=== PATIENT | male | born 1950 | race Two or more races ===

== ENCOUNTER 2017-03-25 15:04 | Inpatient (IN) | payer BC ==
[~2017-03-25] VITALS: Ht 170.2 cm; Wt 99.1 kg
[2017-03-25] VITALS (7 sets, daily range): BP systolic 146–180; BP diastolic 73–84
[~2017-03-25 15:04] MED LIST: AMLO1CAP15 PO; ATOR20TA58 PO; CYCL10TA2 PO; DICL75TA PO; HYDR-2758 PO; IBUP-1060 PO; PANT40TA5 PO; TAMS0.4C2 PO; TIZA4CAP PO
[2017-03-25] MEDS ORDERED: ONDANSETRON PF 4 MG/2 ML VIAL. IV ONE (16:00)
[2017-03-25] MEDS ORDERED: IV NORMAL SALINE 1000ML BAG 1,000 ML IV ONE ×2 (16:00→17:00)
[2017-03-25] MEDS ORDERED: KETOROLAC 30 MG/ML INJ. IV ONE (16:00)
--- NOTE | 2017-03-25 16:13 | PHYS DOC ---
Past Medical History Past Medical History: GERD, Hypertension Past Surgical History: Knee Replacement, Other Alcohol Use: None Drug Use: None Adult General Chief Complaint Chief Complaint: ABDOMINAL PAIN HPI HPI 67-year-old male with a history of hypertension and gastritis compliant with his proton pump inhibitor now presents to the emergency department complaining of epigastric pain with nausea and vomiting for 2 days. She has only had 2 or 3 episodes of vomiting over the last 2 days and is not actively vomiting today. He has not had any pain or shortness of breath. Denies fevers chills sweats or shaking chills. He does have mild epigastric discomfort which is not worse with movement. Denies diarrhea. No black or bloody stool. She has not been eating or drinking much and reports some decreased urine output. Denies history of chronic abdominal problems. Review of Systems Review of Systems Constitutional: Denies fever or chills [] Eyes: Denies change in visual acuity, redness, or eye pain [] HENT: Denies nasal congestion or sore throat [] Respiratory: Denies cough or shortness of breath [] Cardiovascular: No additional information not addressed in HPI [] GI: Denies abdominal pain, nausea, vomiting, bloody stools or diarrhea [] : Denies dysuria or hematuria [] Musculoskeletal: Denies back pain or joint pain [] Integument: Denies rash or skin lesions [] Neurologic: Denies headache, focal weakness or sensory changes [] Endocrine: Denies polyuria or polydipsia [] All other systems were reviewed and found to be within normal limits, except as documented in this note. Current Medications Current Medications Current Medications Medications (Trade) Dose Ordered Sig/Beau Start Time Stop Time Status Last Admin Dose Admin Calcium Gluconate (Calcium Gluconate) 1,000 mg 1X ONCE 03/25/17 17:00 03/25/17 17:01 DC 03/25/17 17:06 1,000 MG Dextrose (Dextrose 50%-Water Syringe) 25 gm 1X ONCE 03/25/17 17:00 03/25/17 17:01 DC 03/25/17 17:04 25 GM Info (Do NOT chart on this entry -- for MONITORING) 1 each PRN DAILY PRN 03/25/17 16:15 03/27/17 16:14 Insulin Human Regular (NovoLIN R VIAL) 10 unit 1X ONCE 03/25/17 17:00 03/25/17 17:01 DC 03/25/17 17:06 10 UNIT Iohexol (Omnipaque 300 Mg/ml) 75 ml 1X ONCE 03/25/17 16:15 03/25/17 16:16 DC Ketorolac Tromethamine (Toradol) 30 mg 1X ONCE 03/25/17 16:00 03/25/17 16:07 DC 03/25/17 16:19 30 MG Ondansetron HCl (Zofran) 4 mg 1X ONCE 03/25/17 16:00 03/25/17 16:07 DC 03/25/17 16:19 4 MG Sodium Bicarbonate 50 meq 1X ONCE 03/25/17 17:00 03/25/17 17:01 DC 03/25/17 17:20 50 MEQ Sodium Chloride 1,000 ml @ 150 mls/hr [id number] 03/25/17 17:06 03/26/17 00:08 DC Allergies Allergies Allergies Coded Allergies Type Severity Reaction Last Updated Verified No Known Drug Allergies 12/21/15 No Physical Exam Physical Exam Well-appearing obese 67-year-old male in no acute distress. He is alert communicative cooperative and appropriate. Clear lungs regular rate and rhythm no tachycardia obese abdomen with pannus at baseline of distention per patient. Minimal epigastric tenderness no guarding rebound no mass or megaly normal bowel sounds normal color. Constitutional: Well developed, well nourished, no acute distress, non-toxic appearance. [] HENT: Normocephalic, atraumatic, bilateral external ears normal, oropharynx alley dry, no oral exudates, nose normal. [] Eyes: PERRLA, EOMI, conjunctiva normal, no discharge. [] Neck: Normal range of motion, no tenderness, supple, no stridor. [] Cardiovascular:Heart rate regular rhythm, no murmur [] Lungs & Thorax: Bilateral breath sounds clear to auscultation [] Abdomen: Bowel sounds normal, soft, epigastric tenderness. As above, no masses, no pulsatile masses. [] Skin: Warm, dry, no erythema, no rash. [] Back: No tenderness, no CVA tenderness. [] Extremities: No tenderness, no cyanosis, no clubbing, ROM intact, no edema. [] Neurologic: Alert and oriented X 3, normal motor function, normal sensory function, no focal deficits noted. [] Psychologic: Affect normal, judgement normal, mood normal. [] Current Patient Data Vital Signs Vital Signs Date Time Temp Pulse Resp B/P (MAP) Pulse Ox O2 Delivery O2 Flow Rate FiO2 03/25/17 17:14 74 18 172/90 (117) 93 03/25/17 15:22 98.2 Room Air 98.2 Lab Values Laboratory Tests Test 03/25/17 15:28 White Blood Count 10.5 x10^3/uL (4.0-11.0) Red Blood Count 3.68 x10^6/uL (4.30-5.70) L Hemoglobin 11.3 g/dL (13.0-17.5) L Hematocrit 33.7 % (39.0-53.0) L Mean Corpuscular Volume 92 fL (79-100) Mean Corpuscular Hemoglobin 31 pg (25-35) Mean Corpuscular Hemoglobin Concent 34 g/dL (31-37) Red Cell Distribution Width 14.7 % (11.5-14.5) H Platelet Count 265 x10^3/uL (140-400) Neutrophils (%) (Auto) 77 % (31-73) H Lymphocytes (%) (Auto) 16 % (24-48) L Monocytes (%) (Auto) 5 % (0-9) Eosinophils (%) (Auto) 2 % (0-3) Basophils (%) (Auto) 1 % (0-3) Neutrophils # (Auto) 8.1 x10^3uL (1.8-7.7) H Lymphocytes # (Auto) 1.7 x10^3/uL (1.0-4.8) Monocytes # (Auto) 0.6 x10^3/uL (0.0-1.1) Eosinophils # (Auto) 0.2 x10^3/uL (0.0-0.7) Basophils # (Auto) 0.1 x10^3/uL (0.0-0.2) Sodium Level 133 mmol/L (136-145) L Potassium Level 6.6 mmol/L (3.5-5.1) *H Chloride Level 97 mmol/L (98-107) L Carbon Dioxide Level 19 mmol/L (21-32) L Anion Gap 17 (6-14) H Blood Urea Nitrogen 93 mg/dL (8-26) H Creatinine 18.4 mg/dL (0.7-1.3) H Estimated GFR (Cockcroft-Gault) 2.6 BUN/Creatinine Ratio 5 (6-20) L Glucose Level 106 mg/dL (70-99) H Calcium Level 8.6 mg/dL (8.5-10.1) Total Bilirubin 0.7 mg/dL (0.2-1.0) Aspartate Amino Transferase (AST) 20 U/L (15-37) Alanine Aminotransferase (ALT) 21 U/L (16-63) Alkaline Phosphatase 93 U/L (46-116) Total Protein 7.2 g/dL (6.4-8.2) Albumin 3.4 g/dL (3.4-5.0) Albumin/Globulin Ratio 0.9 (1.0-1.7) L Lipase 85 U/L (73-393) Laboratory Tests 03/25/17 15:28 Laboratory Tests 03/25/17 15:28 EKG EKG EKG with normal sinus rhythm at 83 left axis deviation nonspecific ST and T- wave findings. No STEMI interpreted by me[] Radiology/Procedures Radiology/Procedures CT abdomen and pelvis pending[] Course & Med Decision Making Course & Med Decision Making Pertinent Labs and Imaging studies reviewed. (See chart for details) Patient with minimal epigastric pain and tenderness and mild malaise. Labs returned with acute renal failure BUN/creatinine 93 and 18.4. Patient with a history of prior renal insufficiency however highest creatinine on record in our system is December 2009 at 3.2 which resulted 0.92 days later. Patient's potassium 6.6 consistent with acute renal failure and CO2 19 consistent with metabolic acidosis as a result. Treatment initiated for hyperkalemia. Case discussed with patient's primary care doctor, Dr. Madrid is aware of history and findings and agrees with inpatient admission to his service and request consultation to Dr. Coles warehouse inventory clerk. Case discussed with Dr. Coles and he is aware the history and findings including CT result of bladder distention without with obstruction as possible etiology for this acute renal failure. Dr. Coles will address stat consultation and further treatment including dialysis as necessary. Critical care 36 minutes [] Dragon Disclaimer Dragon Disclaimer This electronic medical record was generated, in whole or in part, using a voice recognition dictation system. Departure Departure Impression: Primary Impression: Acute renal failure Additional Impressions: Dehydration Hyperkalemia, diminished renal excretion Metabolic acidosis Abdominal pain Disposition: 09 ADMITTED INPATIENT Admitting Physician: Amita Madrid Condition: CRITICAL Referrals: NO PCP (PCP) Problem Qualifiers MARY MIRZA MD Mar 25, 2017 16:13
--- NOTE | 2017-03-25 16:13 | EKG ---
[facility] [address] [place] [address] Test Date: 2017-03-25 Test Time: 15:18:51 Pat Name: KELLI FAGAN Department: Room: Gender: M Manager Flight: : 1950 Requested By: MARY MIRZA Order Number: [id number] Reading MD: Adalberto Weems MD Measurements Intervals [place] Rate: 83 P: 34 DC: 198 QRS: -26 QRSD: 96 T: 26 QT: 336 QTc: 400 Interpretive Statements SINUS RHYTHM LEFTWARD AXIS Electronically Signed On 03-25-2017 16:39:09 DROP BOARD WORKER by Adalberto Weems MD
[2017-03-25] MEDS ORDERED: CONTRAST GIVEN MC PRN (16:15)
[2017-03-25] MEDS ORDERED: IOHEXOL 300 MG/ML 100ML VIAL. IV ONE (16:15)
[2017-03-25 16:16] LABS: BASO # 0.1 x10^3/uL (0.0-0.2); BASO % 1 % (0-3); EOS % 2 % (0-3); HEMATOCRIT 33.7 % (39.0-53.0); HEMOGLOBIN 11.3 g/dL (13.0-17.5); LYMPH # 1.7 x10^3/uL (1.0-4.8); LYMPH % 16 % (24-48); MEAN CORPUSCULAR HEMOGLOBIN 31 pg (25-35); MEAN CORPUSCULAR HGB CONC 34 g/dL (31-37); MEAN CORPUSCULAR VOLUME 92 fL (79-100); MONO % 5 % (0-9); NEUT % 77 % (31-73); PLATELET COUNT 265 x10^3/uL (140-400); RED BLOOD COUNT 3.68 x10^6/uL (4.30-5.70); RED CELL DISTRIBUTION WIDTH 14.7 % (11.5-14.5); WHITE BLOOD COUNT 10.5 x10^3/uL (4.0-11.0)
[2017-03-25 16:38] LABS: ALBUMIN 3.4 g/dL (3.4-5.0); ALBUMIN/GLOBULIN RATIO 0.9 (1.0-1.7); CALCIUM 8.6 mg/dL (8.5-10.1); CREATININE 18.4 mg/dL (0.7-1.3); GFR 2.6; TOTAL BILIRUBIN 0.7 mg/dL (0.2-1.0); TOTAL PROTEIN 7.2 g/dL (6.4-8.2)
[2017-03-25 16:42] LABS: POTASSIUM 6.6 mmol/L (3.5-5.1)
[2017-03-25] MEDS ORDERED: CALCIUM GLUCONATE 100 MG/ML VIAL for DOSE IN MG. IVP ONE (17:00)
[2017-03-25] MEDS ORDERED: INSULIN REGULAR 100 UNIT/ML 10ML VIAL. IV ONE (17:00)
[2017-03-25] MEDS ORDERED: DEXTROSE 50% 25 GM / 50ML DISP.SYRIN. IV ONE (17:00)
[2017-03-25] MEDS ORDERED: SODIUM BICARB ADULT 8.4% 50 MEQ/50 ML DISP.SYRIN. IV ONE (17:00)
[2017-03-25] MEDS ORDERED: CALCIUM GLUCONATE 1,000 MG/10 ML VIAL. IV ONE (17:00)
[2017-03-25] MEDS ORDERED: IV NORMAL SALINE 1000ML BAG 1,000 ML IV SCH (17:06)
--- NOTE | 2017-03-25 17:25 | RAD ---
CT Abdomen and Pelvis without contrast History: Abdominal pain radiating to the chest for 4 days Technique: Noncontrast CT imaging was performed of the abdomen and pelvis. There is oral contrast present. Multiplanar images are reviewed. Exposure: One or more of the following individualized dose reduction techniques were utilized for this examination: 1. Automated exposure control 2. Adjustment of the mA and/or kV according to patient size 3. Use of iterative reconstruction technique. Comparison: None Findings: Accurate evaluation of abdominal visceral organs is limited without intravenous contrast. There is no obvious abnormality of the spleen, liver, or pancreas. There is no adrenal nodularity. Gallbladder is present without obvious intraluminal abnormality by CT. Bowel is not considered significantly dilated. No free air is identified. Normal caliber appendix is visualized. Bowel is not considered significantly dilated. There is some strandy change of the paracolic gutters bilaterally. There is also perinephric stranding change bilaterally. Urinary bladder is distended. There is mild right pelvocaliectasis/hydronephrosis. No renal or ureteral calculus is identified. There is hypodense lesion of the inferior right kidney otherwise difficult to characterize, grossly estimated at 1.5 cm density measurements of 9 Hounsfield units. Prostate gland is somewhat prominent. There is multilevel lumbar facet degenerative change. There is degenerative change of the bilateral hips. There is vacuum disc disease greatest at L5-S1, L2-3, L1-2. Impression: 1. There is distention of the urinary bladder, mild right renal pelvocaliectasis. There is also nonspecific stranding change of bilateral perinephric fat. 2. There is probable right renal cyst, poorly characterized on this exam. Electronically signed by: Hernandez Alva MD (03/25/2017 5:22 PM) [id number]
[2017-03-25] MEDS: SODIUM BICARBONATE VIAL 50 MEQ in IV 1/2 NORMAL SALINE 1,000 ML IV SCH ×2 (18:15→19:12)
[2017-03-25] MEDS ORDERED: INFLUENZA VAX SCREEN BY RX. MC ONE (19:30)
[2017-03-25] MEDS ORDERED: PNEUMOCOCCAL VAX SCREEN BY RX. MC ONE (19:30)
[2017-03-25] MEDS ORDERED: PNEUMOC CONJ VACC 23-VALENT 0.5 ML VIAL. VAX IM ONE (21:00)
[2017-03-25] MEDS ORDERED: FLU VACC QS2017-18 (36MOS+)/PF 0.5 ML SYRINGE. VAX IM ONE (21:00)
[2017-03-25] MEDS: ACETAMINOPHEN 325 MG TABLET. PO PRN (21:59)
[2017-03-25] MEDS ORDERED: ONDANSETRON PF 4 MG/2 ML VIAL. IV PRN (22:00)
[2017-03-25] MEDS: HYDROcodone/APAP 5/325MG 1 TAB TABLET PO PRN (22:00)
[2017-03-26] VITALS (18 sets, daily range): BP systolic 132–169; BP diastolic 72–91
[2017-03-26] MEDS: diphenhydrAMINE HCL 25 MG CAPSULE PO PRN (02:52)
[2017-03-26] MEDS: IV NORMAL SALINE 1000ML BAG 1,000 ML IV SCH ×4 (02:52→21:45)
[2017-03-26 05:19] LABS: BILIRUBIN,URINE NEGATIVE (NEG); GLUCOSE,URINE NEGATIVE (NEG); NITRITE,URINE NEGATIVE (NEG); PH,URINE 6.5; PROTEIN,URINE NEGATIVE (NEG-TRACE); UROBILINOGEN,URINE 0.2 mg/dL (0.2 mg/dL)
[2017-03-26 05:26] LABS: RBC,URINE TNTC /HPF (0-2)
[2017-03-26 05:28] LABS: BACTERIA,URINE 0 /HPF (0-FEW)
[2017-03-26 06:28] LABS: BASO % 1 % (0-3); EOS % 4 % (0-3); HEMOGLOBIN 11.1 g/dL (13.0-17.5); LYMPH # 2.1 x10^3/uL (1.0-4.8); LYMPH % 24 % (24-48); MEAN CORPUSCULAR HEMOGLOBIN 30 pg (25-35); MEAN CORPUSCULAR HGB CONC 34 g/dL (31-37); MEAN CORPUSCULAR VOLUME 90 fL (79-100); MONO % 8 % (0-9); NEUT % 65 % (31-73); PLATELET COUNT 259 x10^3/uL (140-400); RED BLOOD COUNT 3.66 x10^6/uL (4.30-5.70); RED CELL DISTRIBUTION WIDTH 14.8 % (11.5-14.5); WHITE BLOOD COUNT 8.8 x10^3/uL (4.0-11.0)
[2017-03-26 06:45] LABS: CALCIUM 8.9 mg/dL (8.5-10.1); CREATININE 7.3 mg/dL (0.7-1.3); GFR 7.5; POTASSIUM 5.3 mmol/L (3.5-5.1)
--- NOTE | 2017-03-26 07:57 | PDOC1 ---
FELISA KING HOT SHOT 03/26/17 0757: HISTORY AND PHYSICAL Chief Complaint Chief Complaint This 67 year old [place] Citizen male has been admitted with a chief complaint of abdominal pain, nausea and vomiting. He was seen by Dr. Randhawa yesterday with c/ o 3 day onset abdominal pain, nausea, and episodes of vomiting. He had epigastric tenderness. His ROS was negative for fever, chills, or diarrhea. He was instructed to proceed to the ED for evaluation. Labs revealed: Na 133, K 6.6 , BUN 93 and Cr 18.4. Hyperkalemia treatment was given. A CT of the abdomen/ pelvis was performed. Distention of the urinary bladder, mild right renal pelvocaliectasis and nonspecific stranding change of bilateral perinephric fat was identified. Lipase 85. A probable right renal cyst was also noted although poorly characterized on this exam. A UA was positive for hematuria. He was then admitted to the ICU and consultation placed with nephrology. Problem List Problems Medical Problems: (1) Abdominal pain Status: Acute (2) Acute renal failure Status: Acute (3) Dehydration Status: Acute (4) Hyperkalemia, diminished renal excretion Status: Acute (5) Metabolic acidosis Status: Acute Past Medical History Cardiovascular: HTN, Hyperlipidemia Musculoskeletal: low back pain (chronic DDD ), Osteoarthritis (bilateral hips ), Other Renal/: Benign prostatic enlarg. Past Surgical History PSH No surgeries Past Surgical History: Other Past Family History Family History: Diabetes, Hypertension Past Social History PSH Negative smoking, ETOH or illicit drug use. Review of Symptoms Review of Symptoms A 14 point ROS was completed with the following noted as positive: per HPI with exception abdominal pain which has resolved. Other systems reviewed and negative. Medications Medications reviewed and reconciled. Allergy Allergies Coded Allergies Type Severity Reaction Last Updated Verified No Known Drug Allergies 12/21/15 No Physical Exam Physical Exam General appearance - alert,well appearing, and in no distress Mental Status - alert, oriented to person, place, and time, affect appropriate to mood Head - normal Chest - clear to auscultation, no wheezes, rales or rhonchi Heart - S1 and S2 normal Abdomen - soft, neg tender epigastric, nondistended, BS+ Neurological - no acute focal neurological deficits noted. Musculoskeletal - no muscular tenderness noted Extremities - no pedal edema Skin - warm and dry VTE Prophylaxis Ordered VTE Prophylaxis Devices: Yes VTE Pharmacological Prophylaxi: No Assessment Labs Laboratory Tests Test 03/25/17 15:28 03/26/17 05:00 03/26/17 05:55 White Blood Count 10.5 x10^3/uL (4.0-11.0) 8.8 x10^3/uL (4.0-11.0) Red Blood Count 3.68 x10^6/uL (4.30-5.70) 3.66 x10^6/uL (4.30-5.70) Hemoglobin 11.3 g/dL (13.0-17.5) 11.1 g/dL (13.0-17.5) Hematocrit 33.7 % (39.0-53.0) 33.0 % (39.0-53.0) Mean Corpuscular Volume 92 fL (79-100) 90 fL (79-100) Mean Corpuscular Hemoglobin 31 pg (25-35) 30 pg (25-35) Mean Corpuscular Hemoglobin Concent 34 g/dL (31-37) 34 g/dL (31-37) Red Cell Distribution Width 14.7 % (11.5-14.5) 14.8 % (11.5-14.5) Platelet Count 265 x10^3/uL (140-400) 259 x10^3/uL (140-400) Neutrophils (%) (Auto) 77 % (31-73) 65 % (31-73) Lymphocytes (%) (Auto) 16 % (24-48) 24 % (24-48) Monocytes (%) (Auto) 5 % (0-9) 8 % (0-9) Eosinophils (%) (Auto) 2 % (0-3) 4 % (0-3) Basophils (%) (Auto) 1 % (0-3) 1 % (0-3) Neutrophils # (Auto) 8.1 x10^3uL (1.8-7.7) 5.7 x10^3uL (1.8-7.7) Lymphocytes # (Auto) 1.7 x10^3/uL (1.0-4.8) 2.1 x10^3/uL (1.0-4.8) Monocytes # (Auto) 0.6 x10^3/uL (0.0-1.1) 0.7 x10^3/uL (0.0-1.1) Eosinophils # (Auto) 0.2 x10^3/uL (0.0-0.7) 0.3 x10^3/uL (0.0-0.7) Basophils # (Auto) 0.1 x10^3/uL (0.0-0.2) 0.0 x10^3/uL (0.0-0.2) Sodium Level 133 mmol/L (136-145) 137 mmol/L (136-145) Potassium Level 6.6 mmol/L (3.5-5.1) 5.3 mmol/L (3.5-5.1) Chloride Level 97 mmol/L (98-107) 102 mmol/L (98-107) Carbon Dioxide Level 19 mmol/L (21-32) 25 mmol/L (21-32) Anion Gap 17 (6-14) 10 (6-14) Blood Urea Nitrogen 93 mg/dL (8-26) 52 mg/dL (8-26) Creatinine 18.4 mg/dL (0.7-1.3) 7.3 mg/dL (0.7-1.3) Estimated GFR (Cockcroft-Gault) 2.6 7.5 BUN/Creatinine Ratio 5 (6-20) Glucose Level 106 mg/dL (70-99) 73 mg/dL (70-99) Calcium Level 8.6 mg/dL (8.5-10.1) 8.9 mg/dL (8.5-10.1) Total Bilirubin 0.7 mg/dL (0.2-1.0) Aspartate Amino Transf (AST/SGOT) 20 U/L (15-37) Alanine Aminotransferase (ALT/SGPT) 21 U/L (16-63) Alkaline Phosphatase 93 U/L (46-116) Total Protein 7.2 g/dL (6.4-8.2) Albumin 3.4 g/dL (3.4-5.0) Albumin/Globulin Ratio 0.9 (1.0-1.7) Lipase 85 U/L (73-393) Urine Collection Type Unknown Urine Color Yellow Urine Clarity Clear Urine pH 6.5 Urine Specific [place] 1.010 Urine Protein Negative mg/dL (NEG-TRACE) Urine Glucose (UA) Negative mg/dL (NEG) Urine Ketones (Stick) Trace mg/dL (NEG) Urine Blood Large (NEG) Urine Nitrite Negative (NEG) Urine Bilirubin Negative (NEG) Urine Urobilinogen Dipstick 0.2 mg/dL (0.2 mg/dL) Urine Leukocyte Esterase Moderate (NEG) Urine RBC Tntc /HPF (0-2) Urine WBC 5-10 /HPF (0-4) Urine Squamous Epithelial Cells None /LPF Urine Bacteria 0 /HPF (0-FEW) Urine Mucus Slight /LPF Laboratory Tests Test 03/25/17 15:28 03/26/17 05:00 03/26/17 05:55 White Blood Count 10.5 x10^3/uL (4.0-11.0) 8.8 x10^3/uL (4.0-11.0) Red Blood Count 3.68 x10^6/uL (4.30-5.70) 3.66 x10^6/uL (4.30-5.70) Hemoglobin 11.3 g/dL (13.0-17.5) 11.1 g/dL (13.0-17.5) Hematocrit 33.7 % (39.0-53.0) 33.0 % (39.0-53.0) Mean Corpuscular Volume 92 fL (79-100) 90 fL (79-100) Mean Corpuscular Hemoglobin 31 pg (25-35) 30 pg (25-35) Mean Corpuscular Hemoglobin Concent 34 g/dL (31-37) 34 g/dL (31-37) Red Cell Distribution Width 14.7 % (11.5-14.5) 14.8 % (11.5-14.5) Platelet Count 265 x10^3/uL (140-400) 259 x10^3/uL (140-400) Neutrophils (%) (Auto) 77 % (31-73) 65 % (31-73) Lymphocytes (%) (Auto) 16 % (24-48) 24 % (24-48) Monocytes (%) (Auto) 5 % (0-9) 8 % (0-9) Eosinophils (%) (Auto) 2 % (0-3) 4 % (0-3) Basophils (%) (Auto) 1 % (0-3) 1 % (0-3) Neutrophils # (Auto) 8.1 x10^3uL (1.8-7.7) 5.7 x10^3uL (1.8-7.7) Lymphocytes # (Auto) 1.7 x10^3/uL (1.0-4.8) 2.1 x10^3/uL (1.0-4.8) Monocytes # (Auto) 0.6 x10^3/uL (0.0-1.1) 0.7 x10^3/uL (0.0-1.1) Eosinophils # (Auto) 0.2 x10^3/uL (0.0-0.7) 0.3 x10^3/uL (0.0-0.7) Basophils # (Auto) 0.1 x10^3/uL (0.0-0.2) 0.0 x10^3/uL (0.0-0.2) Sodium Level 133 mmol/L (136-145) 137 mmol/L (136-145) Potassium Level 6.6 mmol/L (3.5-5.1) 5.3 mmol/L (3.5-5.1) Chloride Level 97 mmol/L (98-107) 102 mmol/L (98-107) Carbon Dioxide Level 19 mmol/L (21-32) 25 mmol/L (21-32) Anion Gap 17 (6-14) 10 (6-14) Blood Urea Nitrogen 93 mg/dL (8-26) 52 mg/dL (8-26) Creatinine 18.4 mg/dL (0.7-1.3) 7.3 mg/dL (0.7-1.3) Estimated GFR (Cockcroft-Gault) 2.6 7.5 BUN/Creatinine Ratio 5 (6-20) Glucose Level 106 mg/dL (70-99) 73 mg/dL (70-99) Calcium Level 8.6 mg/dL (8.5-10.1) 8.9 mg/dL (8.5-10.1) Total Bilirubin 0.7 mg/dL (0.2-1.0) Aspartate Amino Transf (AST/SGOT) 20 U/L (15-37) Alanine Aminotransferase (ALT/SGPT) 21 U/L (16-63) Alkaline Phosphatase 93 U/L (46-116) Total Protein 7.2 g/dL (6.4-8.2) Albumin 3.4 g/dL (3.4-5.0) Albumin/Globulin Ratio 0.9 (1.0-1.7) Lipase 85 U/L (73-393) Urine Collection Type Unknown Urine Color Yellow Urine Clarity Clear Urine pH 6.5 Urine Specific [place] 1.010 Urine Protein Negative mg/dL (NEG-TRACE) Urine Glucose (UA) Negative mg/dL (NEG) Urine Ketones (Stick) Trace mg/dL (NEG) Urine Blood Large (NEG) Urine Nitrite Negative (NEG) Urine Bilirubin Negative (NEG) Urine Urobilinogen Dipstick 0.2 mg/dL (0.2 mg/dL) Urine Leukocyte Esterase Moderate (NEG) Urine RBC Tntc /HPF (0-2) Urine WBC 5-10 /HPF (0-4) Urine Squamous Epithelial Cells None /LPF Urine Bacteria 0 /HPF (0-FEW) Urine Mucus Slight /LPF Plan Plan IMPRESSION: 1. Abdominal pain n/v 2. Acute renal failure 3. hyponatremia 4. Acute hyperkalemia 5. HTN 6. hematuria 7. hyperlipidemia 8. OA bilateral hips 9. DDD lumbar spine 10. BPH 11. anemia PLAN: 03/26/17 ARF with lyte imbalance - nephrology consult - Admit BUN/Cr 93/18.4 - today 52/ 7.3 - Na improved from 133 to 137 - IVF NS 150cc/hr HTN - resume amlodipine - hold JAYLIN epigastric pain/n/v - resolved - renal diet - CT abd pelvis reviewed anemia - monitor - Admit 11.3 - today 11.1 DVT/GI prophylaxis - SCD/SAM PPI For more details regarding further plans, please refer to the orders. IZZY RANDHAWA MD 03/26/17 1132: HISTORY AND PHYSICAL Chief Complaint Chief Complaint Patient was inappropriately placed in Detention for 3 days about 10 days ago when he did not eat drink for 3 days.This may have initiated this episode.Previous renal function test in office was normal.He had one such episode of acute renal failure - although not as bad previously. Plan Plan Not sure if symptoms worsened due to acute gastroenteritis or due to renal failure. The patient was seen and examined by me. Chart reviewed and plan of care formulated. Discussed with, reviewed and agree with HOSPITAL PHARMACY DIRECTOR's notes, plan of care and orders with modifications as necessary. For more details regarding further plans, please refer to the orders. FELISA KING APRN Mar 26, 2017 07:57 IZZY RANDHAWA MD Mar 26, 2017 11:32
[2017-03-26] MEDS: TAMSULOSIN 0.4 MG CAP.ER.24H. PO SCH (08:54)
[2017-03-26] MEDS: amLODIPine BESYLATE 10 MG TABLET PO SCH (08:54)
[2017-03-26] MEDS: PANTOPRAZOLE 40 MG TABLET.DR. PO SCH (08:54)
--- NOTE | 2017-03-26 11:08 | PDOC2 ---
CONSULT Date of Consult Date of Consult DATE: 03/26/17 TIME: 11:03 Reason for Consult Reason for Consult: RENAL FAILURE Referring Physician Referring Physician: SYDNEE Identification/Chief Complaint Chief Complaint ABD PAIN, N/V Problems: Source Source: Chart review, Patient History of Present Illness Reason for Visit: THIS IS A 67 YR WITH ONE WEEK HX OF N/V AND ABD PAIN. STATES THAT HE STARTED TO HAVE PROBLEMS URINATING ABOUT A WEEK AGO. PRIOR TO THAT NO PROBLEMS PER PT BUT MED LIST SHOW FLOMAX USE. NO HX OF ANY KIDNEY OR BLADDER SURGERIES HEMATURIA DYSURIA OR FREQUENCY NOTED. CR WAS 0.6 IN Dec LAST YEAR. NO NSAID ABUSE HX. APPETITE HAS BEEN POOR LAST SEVERAL DAYS WELL Past Medical History Cardiovascular: HTN, Hyperlipidemia Musculoskeletal: low back pain (chronic DDD ), Osteoarthritis (bilateral hips ), Other Renal/: Benign prostatic enlarg. Past Surgical History Past Surgical History: Other Family History Family History: Diabetes, Hypertension Social History ALCOHOL: none Drugs: None Current Problem List Problem List Problems Medical Problems: (1) Abdominal pain Status: Acute (2) Acute renal failure Status: Acute (3) Dehydration Status: Acute (4) Hyperkalemia, diminished renal excretion Status: Acute (5) Metabolic acidosis Status: Acute Current Medications Current Medications Current Medications Sodium Chloride 1,000 ml @ 999 mls/hr 1X ONCE IV Last administered on 16:18; Start 03/25/17 at 16:00; Stop 03/25/17 at 17:00; Status DC Ketorolac Tromethamine (Toradol) 30 mg 1X ONCE IV Last administered on 16:19; Start 03/25/17 at 16:00; Stop 03/25/17 at 16:07; Status DC Ondansetron HCl (Zofran) 4 mg 1X ONCE IV Last administered on 03/25/17 16:19 ; Start 03/25/17 at 16:00; Stop 03/25/17 at 16:07; Status DC Iohexol (Omnipaque 300 Mg/ml) 75 ml 1X ONCE IV ; Start 03/25/17 at 16:15; Stop 03/25/17 at 16:16; Status DC Info (Do NOT chart on this entry -- for MONITORING) 1 each PRN DAILY PRN MC SEE COMMENTS; Start 03/25/17 at 16:15; Stop 03/27/17 at 16:14 Sodium Chloride 1,000 ml @ 999 mls/hr 1X ONCE IV Last administered on 17:53; Start 03/25/17 at 17:00; Stop 03/25/17 at 18:00; Status DC Calcium Gluconate (Calcium Gluconate) 1,000 mg 1X ONCE IVP ; Start 03/25/17 at 17:00; Stop 03/25/17 at 17:01; Status UNV Sodium Bicarbonate 50 meq 1X ONCE IV Last administered on 03/25/17 17:20; Start 03/25/17 at 17:00; Stop 03/25/17 at 17:01; Status DC Insulin Human Regular (NovoLIN R VIAL) 10 unit 1X ONCE IV Last administered on 03/25/17 17:06; Start 03/25/17 at 17:00; Stop 03/25/17 at 17:01; Status DC Dextrose (Dextrose 50%-Water Syringe) 25 gm 1X ONCE IV Last administered on 17:04; Start 03/25/17 at 17:00; Stop 03/25/17 at 17:01; Status DC Calcium Gluconate (Calcium Gluconate) 1,000 mg 1X ONCE IV Last administered on 03/25/17 17:06; Start 03/25/17 at 17:00; Stop 03/25/17 at 17:01; Status DC Sodium Chloride 1,000 ml @ 150 mls/hr Q6H40M IV ; Start 03/25/17 at 17:06; Stop 03/26/17 at 00:08; Status DC Sodium Bicarbonate 50 meq/Sodium Chloride 1,050 ml @ 125 mls/hr Q8H24M IV Last administered on 03/25/17 19:12; Start 03/25/17 at 18:15; Stop 03/26/17 at 02:38; Status DC Info (Do NOT chart on this placeholder) 1 each 1X ONCE MC ; Start 03/25/17 at 19:30; Stop 03/25/17 at 19:31; Status UNV Pneumococcal Polyvalent Vaccine (Do NOT chart on this placeholder) 1 each 1X ONCE MC ; Start 03/25/17 at 19:30; Stop 03/25/17 at 19:31; Status UNV Influenza Virus Vaccine Quadrival (Fluarix Quad [id number] Syringe) 0.5 ml ONCE ONCE VAX IM ; Start 03/25/17 at 21:00; Stop 03/25/17 at 21:01; Status DC Pneumococcal Polyvalent Vaccine (Pneumovax 23) 0.5 ml ONCE ONCE VAX IM ; Start 03/25/17 at 21:00; Stop 03/25/17 at 21:01; Status DC Acetaminophen (Tylenol) 650 mg PRN Q6HRS PRN PO MILD PAIN / TEMP Last administered on 03/25/17 21:59; Start 03/25/17 at 22:00 Acetaminophen/ Hydrocodone Bitart (Lortab 5/325) 1 tab PRN Q6HRS PRN PO MODERATE PAIN Last administered on 03/25/17 22:00; Start 03/25/17 at 22:00 Ondansetron HCl (Zofran) 4 mg PRN Q6HRS PRN IV NAUSEA/VOMITING; Start at 22:00 Sodium Chloride 1,000 ml @ 150 mls/hr Q6H40M IV Last administered on 02:52; Start 03/26/17 at 01:45 Diphenhydramine HCl (Benadryl) 25 mg PRN Q6HRS PRN PO ITCHING Last administered on 03/26/17 02:52; Start 03/26/17 at 02:45 Atorvastatin Calcium (Lipitor) 20 mg QHS PO ; Start 03/26/17 at 21:00 Pantoprazole Sodium (Protonix) 40 mg DAILYAC PO Last administered on 08:54; Start 03/26/17 at 09:00 Tamsulosin HCl (Flomax) 0.4 mg DAILY PO Last administered on 03/26/17 08:54; Start 03/26/17 at 09:00 Amlodipine Besylate (Norvasc) 10 mg DAILY PO Last administered on 03/26/17 08 :54; Start 03/26/17 at 09:00 Active Scripts Active Hydrocodone-Apap 5-325 (Hydrocodone Bit/Acetaminophen) 1 Each Tablet 1 Tab PO PRN Q6HRS PRN Tizanidine Hcl 4 Mg Capsule 4 Mg PO TID PRN Reported Tamsulosin Hcl 0.4 Mg Cap.er.24h 0.4 Mg PO DAILY Pantoprazole Sodium 40 Mg Tablet.dr 40 Mg PO DAILY Atorvastatin Calcium 20 Mg Tablet 1 Tab PO DAILY Amlodipine-Benazepril 10-40 Mg (Amlodipine Besylate/Benazepril) 1 Each Capsule 1 Cap PO DAILY Allergies Allergies: Coded Allergies: No Known Drug Allergies (Unverified , 12/21/15) ROS General: YES: Fatigue, Appetite PSYCHOLOGICAL ROS: YES: Anxiety Eyes: Yes Decreased vision HEENT: YES: Heacaches ALLERGY AND IMMUNOLOGY: YES: Nasal Congestion, Seasonal Allergies Respiratory: YES: Cough Gastrointestinal: Yes Nausea, Yes Vomiting, Yes Abdominal Pain Genitourinary: YES Frequency Musculoskeletal: Yes Joint Stiffness, Yes Muscular Weakness Neurological: Yes Weakness Skin: Yes Dry Skin Physical Exam General: Alert, Oriented X3, Cooperative, No acute distress HEENT: Atraumatic Lungs: Clear to auscultation Heart: Regular rate, Normal S1, Normal S2 Abdomen: Normal bowel sounds, Soft, No tenderness, No hepatosplenomegaly, No masses Extremities: No clubbing Skin: No breakdown, No significant lesion Neuro: Normal speech, Sensation intact Psych/Mental Status: Mental status NL, Mood NL MUSCULOSKELETAL: No joint tenderness, No deformity Vitals VITALS Vital Signs Date Time Temp Pulse Resp B/P (MAP) Pulse Ox O2 Delivery O2 Flow Rate FiO2 03/26/17 08:54 84 164/83 03/26/17 08:00 20 99 Nasal Cannula 2.0 03/26/17 04:22 98.0 98.0 Labs Labs Laboratory Tests Test 03/25/17 15:28 03/26/17 05:00 03/26/17 05:55 White Blood Count 10.5 x10^3/uL (4.0-11.0) 8.8 x10^3/uL (4.0-11.0) Red Blood Count 3.68 x10^6/uL (4.30-5.70) 3.66 x10^6/uL (4.30-5.70) Hemoglobin 11.3 g/dL (13.0-17.5) 11.1 g/dL (13.0-17.5) Hematocrit 33.7 % (39.0-53.0) 33.0 % (39.0-53.0) Mean Corpuscular Volume 92 fL (79-100) 90 fL (79-100) Mean Corpuscular Hemoglobin 31 pg (25-35) 30 pg (25-35) Mean Corpuscular Hemoglobin Concent 34 g/dL (31-37) 34 g/dL (31-37) Red Cell Distribution Width 14.7 % (11.5-14.5) 14.8 % (11.5-14.5) Platelet Count 265 x10^3/uL (140-400) 259 x10^3/uL (140-400) Neutrophils (%) (Auto) 77 % (31-73) 65 % (31-73) Lymphocytes (%) (Auto) 16 % (24-48) 24 % (24-48) Monocytes (%) (Auto) 5 % (0-9) 8 % (0-9) Eosinophils (%) (Auto) 2 % (0-3) 4 % (0-3) Basophils (%) (Auto) 1 % (0-3) 1 % (0-3) Neutrophils # (Auto) 8.1 x10^3uL (1.8-7.7) 5.7 x10^3uL (1.8-7.7) Lymphocytes # (Auto) 1.7 x10^3/uL (1.0-4.8) 2.1 x10^3/uL (1.0-4.8) Monocytes # (Auto) 0.6 x10^3/uL (0.0-1.1) 0.7 x10^3/uL (0.0-1.1) Eosinophils # (Auto) 0.2 x10^3/uL (0.0-0.7) 0.3 x10^3/uL (0.0-0.7) Basophils # (Auto) 0.1 x10^3/uL (0.0-0.2) 0.0 x10^3/uL (0.0-0.2) Sodium Level 133 mmol/L (136-145) 137 mmol/L (136-145) Potassium Level 6.6 mmol/L (3.5-5.1) 5.3 mmol/L (3.5-5.1) Chloride Level 97 mmol/L (98-107) 102 mmol/L (98-107) Carbon Dioxide Level 19 mmol/L (21-32) 25 mmol/L (21-32) Anion Gap 17 (6-14) 10 (6-14) Blood Urea Nitrogen 93 mg/dL (8-26) 52 mg/dL (8-26) Creatinine 18.4 mg/dL (0.7-1.3) 7.3 mg/dL (0.7-1.3) Estimated GFR (Cockcroft-Gault) 2.6 7.5 BUN/Creatinine Ratio 5 (6-20) Glucose Level 106 mg/dL (70-99) 73 mg/dL (70-99) Calcium Level 8.6 mg/dL (8.5-10.1) 8.9 mg/dL (8.5-10.1) Total Bilirubin 0.7 mg/dL (0.2-1.0) Aspartate Amino Transf (AST/SGOT) 20 U/L (15-37) Alanine Aminotransferase (ALT/SGPT) 21 U/L (16-63) Alkaline Phosphatase 93 U/L (46-116) Total Protein 7.2 g/dL (6.4-8.2) Albumin 3.4 g/dL (3.4-5.0) Albumin/Globulin Ratio 0.9 (1.0-1.7) Lipase 85 U/L (73-393) Urine Collection Type Unknown Urine Color Yellow Urine Clarity Clear Urine pH 6.5 Urine Specific [place] 1.010 Urine Protein Negative mg/dL (NEG-TRACE) Urine Glucose (UA) Negative mg/dL (NEG) Urine Ketones (Stick) Trace mg/dL (NEG) Urine Blood Large (NEG) Urine Nitrite Negative (NEG) Urine Bilirubin Negative (NEG) Urine Urobilinogen Dipstick 0.2 mg/dL (0.2 mg/dL) Urine Leukocyte Esterase Moderate (NEG) Urine RBC Tntc /HPF (0-2) Urine WBC 5-10 /HPF (0-4) Urine Squamous Epithelial Cells None /LPF Urine Bacteria 0 /HPF (0-FEW) Urine Mucus Slight /LPF Laboratory Tests Test 03/25/17 15:28 03/26/17 05:00 03/26/17 05:55 White Blood Count 10.5 x10^3/uL (4.0-11.0) 8.8 x10^3/uL (4.0-11.0) Red Blood Count 3.68 x10^6/uL (4.30-5.70) 3.66 x10^6/uL (4.30-5.70) Hemoglobin 11.3 g/dL (13.0-17.5) 11.1 g/dL (13.0-17.5) Hematocrit 33.7 % (39.0-53.0) 33.0 % (39.0-53.0) Mean Corpuscular Volume 92 fL (79-100) 90 fL (79-100) Mean Corpuscular Hemoglobin 31 pg (25-35) 30 pg (25-35) Mean Corpuscular Hemoglobin Concent 34 g/dL (31-37) 34 g/dL (31-37) Red Cell Distribution Width 14.7 % (11.5-14.5) 14.8 % (11.5-14.5) Platelet Count 265 x10^3/uL (140-400) 259 x10^3/uL (140-400) Neutrophils (%) (Auto) 77 % (31-73) 65 % (31-73) Lymphocytes (%) (Auto) 16 % (24-48) 24 % (24-48) Monocytes (%) (Auto) 5 % (0-9) 8 % (0-9) Eosinophils (%) (Auto) 2 % (0-3) 4 % (0-3) Basophils (%) (Auto) 1 % (0-3) 1 % (0-3) Neutrophils # (Auto) 8.1 x10^3uL (1.8-7.7) 5.7 x10^3uL (1.8-7.7) Lymphocytes # (Auto) 1.7 x10^3/uL (1.0-4.8) 2.1 x10^3/uL (1.0-4.8) Monocytes # (Auto) 0.6 x10^3/uL (0.0-1.1) 0.7 x10^3/uL (0.0-1.1) Eosinophils # (Auto) 0.2 x10^3/uL (0.0-0.7) 0.3 x10^3/uL (0.0-0.7) Basophils # (Auto) 0.1 x10^3/uL (0.0-0.2) 0.0 x10^3/uL (0.0-0.2) Sodium Level 133 mmol/L (136-145) 137 mmol/L (136-145) Potassium Level 6.6 mmol/L (3.5-5.1) 5.3 mmol/L (3.5-5.1) Chloride Level 97 mmol/L (98-107) 102 mmol/L (98-107) Carbon Dioxide Level 19 mmol/L (21-32) 25 mmol/L (21-32) Anion Gap 17 (6-14) 10 (6-14) Blood Urea Nitrogen 93 mg/dL (8-26) 52 mg/dL (8-26) Creatinine 18.4 mg/dL (0.7-1.3) 7.3 mg/dL (0.7-1.3) Estimated GFR (Cockcroft-Gault) 2.6 7.5 BUN/Creatinine Ratio 5 (6-20) Glucose Level 106 mg/dL (70-99) 73 mg/dL (70-99) Calcium Level 8.6 mg/dL (8.5-10.1) 8.9 mg/dL (8.5-10.1) Total Bilirubin 0.7 mg/dL (0.2-1.0) Aspartate Amino Transf (AST/SGOT) 20 U/L (15-37) Alanine Aminotransferase (ALT/SGPT) 21 U/L (16-63) Alkaline Phosphatase 93 U/L (46-116) Total Protein 7.2 g/dL (6.4-8.2) Albumin 3.4 g/dL (3.4-5.0) Albumin/Globulin Ratio 0.9 (1.0-1.7) Lipase 85 U/L (73-393) Urine Collection Type Unknown Urine Color Yellow Urine Clarity Clear Urine pH 6.5 Urine Specific [place] 1.010 Urine Protein Negative mg/dL (NEG-TRACE) Urine Glucose (UA) Negative mg/dL (NEG) Urine Ketones (Stick) Trace mg/dL (NEG) Urine Blood Large (NEG) Urine Nitrite Negative (NEG) Urine Bilirubin Negative (NEG) Urine Urobilinogen Dipstick 0.2 mg/dL (0.2 mg/dL) Urine Leukocyte Esterase Moderate (NEG) Urine RBC Tntc /HPF (0-2) Urine WBC 5-10 /HPF (0-4) Urine Squamous Epithelial Cells None /LPF Urine Bacteria 0 /HPF (0-FEW) Urine Mucus Slight /LPF Assessment/Plan Assessment/Plan IMP JEM-ATN-NO CKD HX-CR OF 0.6 IN DEC 2015 URINARY RETENTION HYPERKALEMIA MET ACIDOSIS UREMIA PLAN DON IVF'S RESUME FLOMAX HOLD HOME MED BENAZEPRIL WILL NEED UROLOGY EVAL LABS IN AM NO NEED FOR HD ELIESER MARTINEZ MD Mar 26, 2017 11:08
--- NOTE | 2017-03-26 16:23 | RAD ---
Portable chest, 03/26/2017: History: Renal failure Comparison is made to a study from 12/21/2015. The heart size is normal. There is mild tortuosity of the thoracic aorta. The pulmonary vascularity is normal. No acute infiltrate is seen. There is no evidence of pleural fluid. IMPRESSION: No acute cardiopulmonary abnormality is detected.
[2017-03-26] MEDS: HYDROcodone/APAP 5/325MG 1 TAB TABLET PO PRN (19:22)
[2017-03-26] MEDS: ATORVASTATIN CALCIUM 20 MG TABLET PO SCH (21:24)
[2017-03-27 03:30] VITALS: BP 154/84
[2017-03-27] MEDS: IV NORMAL SALINE 1000ML BAG 1,000 ML IV SCH ×4 (04:25→21:26)
[2017-03-27 06:25] LABS: BASO # 0.1 x10^3/uL (0.0-0.2); BASO % 1 % (0-3); EOS % 4 % (0-3); LYMPH # 2.3 x10^3/uL (1.0-4.8); LYMPH % 24 % (24-48); MEAN CORPUSCULAR HEMOGLOBIN 30 pg (25-35); MEAN CORPUSCULAR HGB CONC 33 g/dL (31-37); MEAN CORPUSCULAR VOLUME 91 fL (79-100); MONO % 7 % (0-9); NEUT % 64 % (31-73); PLATELET COUNT 276 x10^3/uL (140-400); RED BLOOD COUNT 3.98 x10^6/uL (4.30-5.70); RED CELL DISTRIBUTION WIDTH 14.2 % (11.5-14.5); WHITE BLOOD COUNT 9.4 x10^3/uL (4.0-11.0)
[2017-03-27 06:40] LABS: CALCIUM 9.2 mg/dL (8.5-10.1); CREATININE 1.4 mg/dL (0.7-1.3); GFR 50.4; MAGNESIUM 1.6 mg/dL (1.8-2.4); PHOSPHORUS 4.8 mg/dL (2.6-4.7); POTASSIUM 4.5 mmol/L (3.5-5.1)
[2017-03-27 08:06] VITALS: BP 164/86
--- NOTE | 2017-03-27 08:29 | PDOC3 ---
MARLEY-BONNIEFELISA INSTRUCTIONAL LEADER 03/27/17 0829: IM DISCHARGE & PROGRESS NOTES Date of Admission Date of Admission Date of Admission: Mar 25, 2017 at 17:20 Date of Discharge Date of Discharge 03/27/17 Primary Diagnosis Primary Diagnosis 1. Abdominal pain n/v secondary to uremia 2. Acute renal failure JEM ATN VMN dehydration 3. hyponatremia resolved 4. Acute hyperkalemia resolved 5. HTN 6. hematuria 7. hyperlipidemia 8. OA bilateral hips 9. DDD lumbar spine 10. BPH 11. anemia 12. urinary retention requiring miller 13. uremia secondary to ARF Consults Consults Raiza Coles MD Procedures Procedures None Labs Labs Laboratory Tests Test 03/25/17 15:28 03/25/17 18:00 03/26/17 05:00 03/26/17 05:55 White Blood Count 10.5 x10^3/uL (4.0-11.0) 8.8 x10^3/uL (4.0-11.0) Red Blood Count 3.68 x10^6/uL (4.30-5.70) 3.66 x10^6/uL (4.30-5.70) Hemoglobin 11.3 g/dL (13.0-17.5) 11.1 g/dL (13.0-17.5) Hematocrit 33.7 % (39.0-53.0) 33.0 % (39.0-53.0) Mean Corpuscular Volume 92 fL (79-100) 90 fL (79-100) Mean Corpuscular Hemoglobin 31 pg (25-35) 30 pg (25-35) Mean Corpuscular Hemoglobin Concent 34 g/dL (31-37) 34 g/dL (31-37) Red Cell Distribution Width 14.7 % (11.5-14.5) 14.8 % (11.5-14.5) Platelet Count 265 x10^3/uL (140-400) 259 x10^3/uL (140-400) Neutrophils (%) (Auto) 77 % (31-73) 65 % (31-73) Lymphocytes (%) (Auto) 16 % (24-48) 24 % (24-48) Monocytes (%) (Auto) 5 % (0-9) 8 % (0-9) Eosinophils (%) (Auto) 2 % (0-3) 4 % (0-3) Basophils (%) (Auto) 1 % (0-3) 1 % (0-3) Neutrophils # (Auto) 8.1 x10^3uL (1.8-7.7) 5.7 x10^3uL (1.8-7.7) Lymphocytes # (Auto) 1.7 x10^3/uL (1.0-4.8) 2.1 x10^3/uL (1.0-4.8) Monocytes # (Auto) 0.6 x10^3/uL (0.0-1.1) 0.7 x10^3/uL (0.0-1.1) Eosinophils # (Auto) 0.2 x10^3/uL (0.0-0.7) 0.3 x10^3/uL (0.0-0.7) Basophils # (Auto) 0.1 x10^3/uL (0.0-0.2) 0.0 x10^3/uL (0.0-0.2) Sodium Level 133 mmol/L (136-145) 137 mmol/L (136-145) Potassium Level 6.6 mmol/L (3.5-5.1) 5.3 mmol/L (3.5-5.1) Chloride Level 97 mmol/L (98-107) 102 mmol/L (98-107) Carbon Dioxide Level 19 mmol/L (21-32) 25 mmol/L (21-32) Anion Gap 17 (6-14) 10 (6-14) Blood Urea Nitrogen 93 mg/dL (8-26) 52 mg/dL (8-26) Creatinine 18.4 mg/dL (0.7-1.3) 7.3 mg/dL (0.7-1.3) Estimated GFR (Cockcroft-Gault) 2.6 7.5 BUN/Creatinine Ratio 5 (6-20) Glucose Level 106 mg/dL (70-99) 73 mg/dL (70-99) Calcium Level 8.6 mg/dL (8.5-10.1) 8.9 mg/dL (8.5-10.1) Total Bilirubin 0.7 mg/dL (0.2-1.0) Aspartate Amino Transf (AST/SGOT) 20 U/L (15-37) Alanine Aminotransferase (ALT/SGPT) 21 U/L (16-63) Alkaline Phosphatase 93 U/L (46-116) Total Protein 7.2 g/dL (6.4-8.2) Albumin 3.4 g/dL (3.4-5.0) Albumin/Globulin Ratio 0.9 (1.0-1.7) Lipase 85 U/L (73-393) Nasal Screen MRSA (PCR) Negative (Negative) Urine Collection Type Unknown Urine Color Yellow Urine Clarity Clear Urine pH 6.5 Urine Specific [place] 1.010 Urine Protein Negative mg/dL (NEG-TRACE) Urine Glucose (UA) Negative mg/dL (NEG) Urine Ketones (Stick) Trace mg/dL (NEG) Urine Blood Large (NEG) Urine Nitrite Negative (NEG) Urine Bilirubin Negative (NEG) Urine Urobilinogen Dipstick 0.2 mg/dL (0.2 mg/dL) Urine Leukocyte Esterase Moderate (NEG) Urine RBC Tntc /HPF (0-2) Urine WBC 5-10 /HPF (0-4) Urine Squamous Epithelial Cells None /LPF Urine Bacteria 0 /HPF (0-FEW) Urine Mucus Slight /LPF Test 03/27/17 06:00 White Blood Count 9.4 x10^3/uL (4.0-11.0) Red Blood Count 3.98 x10^6/uL (4.30-5.70) Hemoglobin 12.0 g/dL (13.0-17.5) Hematocrit 36.0 % (39.0-53.0) Mean Corpuscular Volume 91 fL (79-100) Mean Corpuscular Hemoglobin 30 pg (25-35) Mean Corpuscular Hemoglobin Concent 33 g/dL (31-37) Red Cell Distribution Width 14.2 % (11.5-14.5) Platelet Count 276 x10^3/uL (140-400) Neutrophils (%) (Auto) 64 % (31-73) Lymphocytes (%) (Auto) 24 % (24-48) Monocytes (%) (Auto) 7 % (0-9) Eosinophils (%) (Auto) 4 % (0-3) Basophils (%) (Auto) 1 % (0-3) Neutrophils # (Auto) 6.0 x10^3uL (1.8-7.7) Lymphocytes # (Auto) 2.3 x10^3/uL (1.0-4.8) Monocytes # (Auto) 0.7 x10^3/uL (0.0-1.1) Eosinophils # (Auto) 0.4 x10^3/uL (0.0-0.7) Basophils # (Auto) 0.1 x10^3/uL (0.0-0.2) Sodium Level 139 mmol/L (136-145) Potassium Level 4.5 mmol/L (3.5-5.1) Chloride Level 103 mmol/L (98-107) Carbon Dioxide Level 31 mmol/L (21-32) Anion Gap 5 (6-14) Blood Urea Nitrogen 17 mg/dL (8-26) Creatinine 1.4 mg/dL (0.7-1.3) Estimated GFR (Cockcroft-Gault) 50.4 Glucose Level 93 mg/dL (70-99) Calcium Level 9.2 mg/dL (8.5-10.1) Phosphorus Level 4.8 mg/dL (2.6-4.7) Magnesium Level 1.6 mg/dL (1.8-2.4) Medications Medications Medications reviewed and reconciled for discharge. Brief hospital course Brief hospital course This 67 year old [place] male who presented with abdominal pain, nausea and vomiting was admitted. The following is a summary of his treatment: 03/27/17 ARF - BUN/Cr 17/1.4 - resolved. PO4 4.8 Mg 1.6 -treatment per renal HTN - not controlled. benazepril DC - begin metoprolol succinate 25mg daily- eval in office. epigastric pain n/v - resolved - acute gastroenteritis Anemia - stable - Hgb 12.0 urinary retention - miller placed - will need urology eval out patient - Discharge home initiated - attempt to transmit Metoprolol succ failure due to program. Will order from office. Staff instructed to add to DC meds. ARF improved - 03/26/17 ARF with lyte imbalance - nephrology consult - Admit BUN/Cr 93/18.4 - today 52/ 7.3 - Na improved from 133 to 137 - IVF NS 150cc/hr HTN - resume amlodipine - hold JAYLIN epigastric pain/n/v - resolved - renal diet - CT abd pelvis reviewed anemia - monitor - Admit 11.3 - today 11.1 DVT/GI prophylaxis - SCD/SAM PPI For more details regarding the past history, family history, social history, surgical history and other details, please refer to History and Physical. Subjective feeling better Objective no distress Vitals Vital Signs Date Time Temp Pulse Resp B/P (MAP) Pulse Ox O2 Delivery O2 Flow Rate FiO2 03/27/17 08:06 98.6 86 21 164/86 (112) 96 Nasal Cannula 2.0 98.6 Physical Exam General appearance - alert,well appearing, and in no distress and oriented to person, place, and time Mental Status - alert, oriented to person, place, and time, affect appropriate to mood Head - normal Chest - clear to auscultation, no wheezes, rales or rhonchi, symmetric air entry Heart - S1 and S2 normal Abdomen - soft, nontender, nondistended, - miller to DD clear urine Neurological - no acute focal neurological deficit noted Musculoskeletal - no muscular tenderness noted Extremities - no pedal edema Skin - warm and dry Medications Medications reviewed. Allergy Allergies Coded Allergies Type Severity Reaction Last Updated Verified No Known Drug Allergies 12/21/15 No Follow up in 3- 5 days. Disposition: Home Comments Discharge Management - 35 minutes. For other details please refer to discharge instructions IZZY RANDHAWA MD 03/27/17 1014: IM DISCHARGE & PROGRESS NOTES Brief hospital course Brief hospital course c/o extensive rah and itching since yesterday.May have secondary infection. Exam shows extensive rash.Etiology not clear. ?Obstructive uropathy,Interstitial nephritis. ARF improving. IV steroidx1,Zyrtec,singulair. ? IV antibiotics. see orders.No discharge today. D/c Miller when ok with renal and then follow bladder scan. FELISA KING APRN Mar 27, 2017 08:29 IZZY RANDHAWA MD Mar 27, 2017 10:14
--- NOTE | 2017-03-27 08:32 | DISCH ---
DISCHARGE INSTRUCTIONS Condition on Discharge Condition on Discharge: Stable Activity After Discharge Activity Instructions for Disc: Resume previous activity Diet after Discharge Diet after Discharge: Cardiac Wound Incision Care Other wound/incision instructi: miller care daily. Leg bag at discharge Contacting the DRCandy after DC Call your doctor for: Concerns you may have Follow-Up Follow up with: Dr. Madrid in 3-5 days Treatment/Equipment after DC Adaptive Equipment Issued: None Comment: Miller catheter with drainage bag and leg bag FELISA KING APRN Mar 27, 2017 08:32
[2017-03-27] MEDS: METOPROLOL SUCC 24HR ER 25 MG TAB.ER.24H. PO SCH (09:12)
[2017-03-27] MEDS: amLODIPine BESYLATE 10 MG TABLET PO SCH (09:12)
[2017-03-27] MEDS: PANTOPRAZOLE 40 MG TABLET.DR. PO SCH (09:12)
[2017-03-27] MEDS: TAMSULOSIN 0.4 MG CAP.ER.24H. PO SCH (09:12)
[2017-03-27 10:49] VITALS: BP 159/83
--- NOTE | 2017-03-27 10:55 | PDOC ---
Renal-Progress Notes Subjective Notes Notes NONE History of Present Illness Hx of present illness STABLE AND BETTER Vitals Vitals Vital Signs Date Time Temp Pulse Resp B/P (MAP) Pulse Ox O2 Delivery O2 Flow Rate FiO2 03/27/17 10:49 98.3 80 20 159/83 (108) 94 Room Air 98.3 03/27/17 08:06 2.0 Weight Weight [ ] I.O. Intake and Output Intake and Output 03/27/17 07:00 Intake Total 4787 ml Output Total 5410 ml Balance -623 ml Intake Oral 400 ml IV Total 4387 ml Output Urine Total 5410 ml Labs Labs Laboratory Tests Test 03/27/17 06:00 White Blood Count 9.4 x10^3/uL (4.0-11.0) Red Blood Count 3.98 x10^6/uL (4.30-5.70) Hemoglobin 12.0 g/dL (13.0-17.5) Hematocrit 36.0 % (39.0-53.0) Mean Corpuscular Volume 91 fL (79-100) Mean Corpuscular Hemoglobin 30 pg (25-35) Mean Corpuscular Hemoglobin Concent 33 g/dL (31-37) Red Cell Distribution Width 14.2 % (11.5-14.5) Platelet Count 276 x10^3/uL (140-400) Neutrophils (%) (Auto) 64 % (31-73) Lymphocytes (%) (Auto) 24 % (24-48) Monocytes (%) (Auto) 7 % (0-9) Eosinophils (%) (Auto) 4 % (0-3) Basophils (%) (Auto) 1 % (0-3) Neutrophils # (Auto) 6.0 x10^3uL (1.8-7.7) Lymphocytes # (Auto) 2.3 x10^3/uL (1.0-4.8) Monocytes # (Auto) 0.7 x10^3/uL (0.0-1.1) Eosinophils # (Auto) 0.4 x10^3/uL (0.0-0.7) Basophils # (Auto) 0.1 x10^3/uL (0.0-0.2) Sodium Level 139 mmol/L (136-145) Potassium Level 4.5 mmol/L (3.5-5.1) Chloride Level 103 mmol/L (98-107) Carbon Dioxide Level 31 mmol/L (21-32) Anion Gap 5 (6-14) Blood Urea Nitrogen 17 mg/dL (8-26) Creatinine 1.4 mg/dL (0.7-1.3) Estimated GFR (Cockcroft-Gault) 50.4 Glucose Level 93 mg/dL (70-99) Calcium Level 9.2 mg/dL (8.5-10.1) Phosphorus Level 4.8 mg/dL (2.6-4.7) Magnesium Level 1.6 mg/dL (1.8-2.4) Review of Systems Constitutional: yes: weakness, alert, oriented Ears/Nose/Throat: Yes: no symptom reported Eyes: Yes: no symptom reported Pulmonary: Yes no symptom reported Cardiovascular: Yes no symptom reported Gastrointestional: Yes: no symptom reported Genitourinary: Yes: retention Musculoskeletal: Yes: no symptom reported Psychiatric/Neurological: Yes: no symptom reported Endocrine: Yes: no symptom reported Physical Exam General Appearance: no apparent distress Skin: warm Respiratory: bilateral CTA Heart: S1S2 Abdomen: soft, bowel sounds present Genitourinary: bladder flat Extremities: pulses present, no edema Neurology: alert, oriented Musculoskeletal: Other Assessment Assessment IMP JEM-RESOLVED HYPERKALEMIA-RESOLVED URINARY RETENTION BPH PLAN CONT FLOMAX CONT DON WILL NEED TO HAVE UROLOGY VISIT OP WILL SIGN OFF ELIESER MARTINEZ MD Mar 27, 2017 10:55
[2017-03-27] MEDS ORDERED: methylPREDNISolone SOD SUCC PF 40 MG/ML VIAL. IV ONE (11:00)
[2017-03-27] MEDS: cefTRIAXone IV Push 1 GM VIAL. IVP SCH (13:28)
[2017-03-27 15:00] VITALS: BP 167/83
[2017-03-27] MEDS: ACETAMINOPHEN 325 MG TABLET. PO PRN ×2 (15:20→22:59)
[2017-03-27] MEDS: diphenhydrAMINE HCL 25 MG CAPSULE PO PRN (15:23)
[2017-03-27 19:10] VITALS: BP 142/92
[2017-03-27] MEDS ORDERED: CETIRIZINE HCL 10 MG TABLET. PO SCH (21:00)
[2017-03-27] MEDS ORDERED: MONTELUKAST SODIUM 10 MG TABLET. PO SCH (21:00)
[2017-03-27] MEDS: ATORVASTATIN CALCIUM 20 MG TABLET PO SCH (21:25)
[2017-03-27 23:05] VITALS: BP 132/78
[2017-03-28 03:20] VITALS: BP 134/83
[2017-03-28] MEDS: IV NORMAL SALINE 1000ML BAG 1,000 ML IV SCH (03:23)
[2017-03-28 07:00] VITALS: BP 144/84
[2017-03-28 07:24] LABS: BASO % 0 % (0-3); CALCIUM 8.7 mg/dL (8.5-10.1); EOS % 0 % (0-3); GFR 74.3; HEMATOCRIT 34.8 % (39.0-53.0); HEMOGLOBIN 11.9 g/dL (13.0-17.5); LYMPH # 1.7 x10^3/uL (1.0-4.8); LYMPH % 18 % (24-48); MEAN CORPUSCULAR HEMOGLOBIN 31 pg (25-35); MEAN CORPUSCULAR HGB CONC 34 g/dL (31-37); MEAN CORPUSCULAR VOLUME 90 fL (79-100); MONO % 7 % (0-9); NEUT % 74 % (31-73); PLATELET COUNT 311 x10^3/uL (140-400); POTASSIUM 3.8 mmol/L (3.5-5.1); RED BLOOD COUNT 3.86 x10^6/uL (4.30-5.70); RED CELL DISTRIBUTION WIDTH 14.2 % (11.5-14.5); WHITE BLOOD COUNT 9.4 x10^3/uL (4.0-11.0)
[2017-03-28] MEDS: TAMSULOSIN 0.4 MG CAP.ER.24H. PO SCH (09:30)
[2017-03-28] MEDS: PANTOPRAZOLE 40 MG TABLET.DR. PO SCH (09:30)
[2017-03-28] MEDS: amLODIPine BESYLATE 10 MG TABLET PO SCH (09:31)
[2017-03-28] MEDS: ACETAMINOPHEN 325 MG TABLET. PO PRN (09:31)
[2017-03-28] MEDS: METOPROLOL SUCC 24HR ER 25 MG TAB.ER.24H. PO SCH (09:31)
[2017-03-28 11:00] VITALS: BP 143/73
[2017-03-28] MEDS: cefTRIAXone IV Push 1 GM VIAL. IVP SCH (14:02)
[2017-03-28 15:00] VITALS: BP 140/79
[2017-03-28] MEDS ORDERED: MONT10TA9 PO (15:41)
[2017-03-28] MEDS ORDERED: CETI10TA16 PO (15:42)
[2017-03-28] MEDS ORDERED: METO-239 PO (15:43)
[2017-03-28] MEDS ORDERED: AMLO10TA2 PO (15:44)
[2017-03-28] MEDS ORDERED: METH4TAB2 PO (15:44)
[2017-03-28] MEDS ORDERED: CEFPODOXIME PROXETIL 100 MG TABLET. PO SCH (21:00)
== END 2017-03-28 16:15 | disposition home or self-care (01) | DRG 693 ==
LOC: ER 15:04 → 1 WEST ICU 17:20 → 2 SOUTH 03-26 19:05
PROVIDERS: ADMIT Internal Medicine; ATTEND Internal Medicine
DX: N13.8 Other obstructive and reflux uropathy (principal); N17.0 Acute kidney failure with tubular necrosis; E87.2 Acidosis; E87.1 Hypo-osmolality and hyponatremia; E87.5 Hyperkalemia; N12 Tubulo-interstitial nephritis, not specified as acute or chronic; D64.9 Anemia, unspecified; E78.5 Hyperlipidemia, unspecified; E86.0 Dehydration; I10 Essential (primary) hypertension; K21.9 Gastro-esophageal reflux disease without esophagitis; M16.0 Bilateral primary osteoarthritis of hip; M51.36 Other intervertebral disc degeneration, lumbar region; N28.1 Cyst of kidney, acquired; N40.1 Benign prostatic hyperplasia with lower urinary tract symptoms; Z83.3 Family history of diabetes mellitus; Z82.49 Family history of ischemic heart disease and other diseases of the circulatory system; Z96.659 Presence of unspecified artificial knee joint; G89.29 Other chronic pain; M54.5 Low back pain
CPT/HCPCS: 36415; 71010; 74176; 80048; 80053; 81001; 83690; 83735; 84100; 85025; 87086; 87641; 89050; 93005; 96361; 96374; 96375; J0610; J0696; J1815; J1885; J2405; J2920; J7030; J7042; Q0163; 99291-25

== ENCOUNTER → 2017-10-14 | Outpatient (CLI) | payer BC | END | disposition home or self-care (01) | LOC: RAD 12:00 | DX: M16.11 Unilateral primary osteoarthritis, right hip (principal); I10 Essential (primary) hypertension; E78.5 Hyperlipidemia, unspecified | CPT/HCPCS: 73501 ==

== ENCOUNTER → 2020-03-03 | Outpatient (CLI) | payer OTHER ==
[~2020-03-03] MED LIST changes: +AMLO-187 PO; -AMLO1CAP15 PO; +AMLO1CAP54 PO; +CETI10TA16 PO; -HYDR-2758 PO; +HYDR-2761 PO; +METH4TAB2 PO; +METO-239 PO; +MONT10TA49 PO; -PANT40TA5 PO; +PANT40TA77 PO
--- NOTE | 2020-03-03 14:20 | CARD ---
MR#: [id number] Date of Study: 03/03/2020 Ordering Physician: FRANKLIN MARSHALL, Referring Physician: FRANKLIN MARSHALL, Tech: Mya Todd ARISTEO APPROVED REPORT EXAM: Two-dimensional and M-mode echocardiogram with Doppler and color Doppler. Other Information Quality : Fair Rhythm : Atrial Fibrillation INDICATION Atrial Fibrillation 2D DIMENSIONS RVDd2.8 (2.9-3.5cm)Left Atrium(2D)4.3 (1.6-4.0cm) IVSd1.1 (0.7-1.1cm)Aortic Root(2D)3.2 (2.0-3.7cm) LVDd4.5 (3.9-5.9cm)LVOT Diameter2.2 (1.8-2.4cm) PWd1.1 (0.7-1.1cm)LVDs2.9 (2.5-4.0cm) FS (%) 34.5 %SV57.7 ml LVEF(%)63.7 (>50%) Aortic Valve AoV Peak Tam.141.0cm/sAoV VTI22.5cm AO Peak GR.8.0mmHgLVOT Peak Tam.139.0cm/s AO Mean GR.4mmHgAVA (VMAX)3.89cm2 ZEYNEP (VTI)4.45yk2KB P 1/2 Ekyd912jw Mitral Valve MV E Iocyyiit646.5cm/sMV DECEL ERTA704nc MV A Iobxsslw37.3cm/sE/A Ratio2.7 Tricuspid Valve TR P. Ceyhonro508kh/sRAP CNZRYTLN7aiTy TR Peak Gr.80wxKuHITQ72fiOy Pulmonary Vein S1 Hkpdeswb97.8cm/sD2 Cvmrrqej91.6cm/s LEFT VENTRICLE The left ventricle is normal size. There is normal left ventricular wall thickness. The left ventricu lar systolic function is normal and the ejection fraction is within normal range. The Ejection Fracti on is 55-60%. There is normal LV segmental wall motion. Tissue Doppler imaging reveals moderate left ventricular diastolic dysfunction. RIGHT VENTRICLE The right ventricle is normal size. The right ventricular systolic function is normal. ATRIA The left atrium is mildly dilated. The right atrium size is normal. The interatrial septum is intact with no evidence for an atrial septal defect or patent foramen ovale as noted on 2-D or Doppler imagi ng. AORTIC VALVE The aortic valve is not well visualized. Doppler and Color Flow revealed trace aortic regurgitation. There is no significant aortic valvular stenosis. MITRAL VALVE The mitral valve is calcified but opens well. Mitral annular calcification is mild. There is no evide nce of mitral valve prolapse. There is no mitral valve stenosis. Doppler and Color-flow revealed trac e to mild mitral regurgitation. TRICUSPID VALVE The tricuspid valve is normal in structure and function. Doppler and Color Flow revealed mild tricusp id regurgitation. There is mild to moderate pulmonary hypertension. The PA pressure was estimated at 40 mmHg. There is no tricuspid valve stenosis. PULMONIC VALVE The pulmonic valve is not well visualized. Doppler and Color Flow revealed trace pulmonic valvular re gurgitation. There is no pulmonic valvular stenosis. GREAT VESSELS The aortic root is normal in size. The ascending aorta is not well seen. The IVC is normal in size an d collapses >50% with inspiration. PERICARDIAL EFFUSION There is no evidence of significant pericardial effusion. Critical Notification Critical Value: No <Conclusion> The left ventricular systolic function is normal and the ejection fraction is within normal range. Th e Ejection Fraction is 55-60%. There is normal LV segmental wall motion. Doppler and Color Flow revealed mild tricuspid regurgitation. There is mild to moderate pulmonary hyp ertension. The PA pressure was estimated at 40 mmHg. Signed by : Adalberto Weems, Electronically Approved : 03/03/2020 14:20:19
== END ==
LOC: ECHO 09:18
PROVIDERS: ATTEND Internal Medicine Cardiovascular Disease
DX: I08.1 Rheumatic disorders of both mitral and tricuspid valves (principal); I48.91 Unspecified atrial fibrillation
CPT/HCPCS: 93306

== ENCOUNTER → 2020-04-22 | Outpatient (CLI) | payer OTHER ==
[~2020-04-22] MED LIST changes: +AMLO1CAP53 PO; +RIVA20TA2 PO; +TIZA4TAB2 PO
== END ==
LOC: LAB 10:06
PROVIDERS: ATTEND Internal Medicine Cardiovascular Disease
DX: Z01.812 Encounter for preprocedural laboratory examination (principal); I48.91 Unspecified atrial fibrillation; Z20.828 Contact with and (suspected) exposure to other viral communicable diseases
CPT/HCPCS: U0003

== ENCOUNTER → 2020-05-02 | Outpatient (CLI) | payer OTHER | LOC: LAB 07:33 | PROVIDERS: ATTEND Internal Medicine Cardiovascular Disease | DX: Z01.812 Encounter for preprocedural laboratory examination (principal); I48.91 Unspecified atrial fibrillation; Z20.828 Contact with and (suspected) exposure to other viral communicable diseases | CPT/HCPCS: U0003 ==

== ENCOUNTER 2020-05-04 09:09 | Day surgery (SDC) | payer OTHER ==
[~2020-05-04 09:09] MED LIST changes: +IV RINGERS,LACTATED 1000ML 1,000 ML IV SCH
--- NOTE | 2020-05-04 10:25 | EKG ---
[facility] [address] [place] [address] Test Date: 2020-05-04 Test Time: 10:18:47 Pat Name: KELLI FAGAN Department: Room: Gender: M Refurbish Technician: NEGRITA : 1950 Requested By: FRANKLIN MARSHALL Order Number: [id number] Reading MD: Measurements Intervals [place] Rate: 83 P: NE: QRS: -33 QRSD: 96 T: 42 QT: 396 QTc: 466 Interpretive Statements IRREGULAR RHYTHM, NO P-WAVE FOUND ABNORMAL LEFT AXIS DEVIATION R-S TRANSITION ZONE IN V LEADS DISPLACED TO THE LEFT LEFT ANTERIOR FASCICULAR BLOCK QRS(T) CONTOUR ABNORMALITY CONSIDER ANTEROSEPTAL MYOCARDIAL DAMAGE ABNORMAL ECG RI6.02 Compared to ECG 03/25/2017 15:18:51 Left anterior fascicular block now present Sinus rhythm no longer present
[2020-05-04 10:41] LABS: CALCIUM 8.8 mg/dL (8.5-10.1); GFR 73.7; MAGNESIUM 2.1 mg/dL (1.8-2.4); POTASSIUM 3.8 mmol/L (3.5-5.1)
[2020-05-04] MEDS ORDERED: LIDOCAINE 2% PF 5 ML VIAL. ONE (11:46)
[2020-05-04] MEDS ORDERED: PROPOFOL 10 MG/ML (20ML) VIAL. IV ONE (11:46)
--- NOTE | 2020-05-04 11:58 | EKG ---
[facility] [address] [place] [address] Test Date: 2020-05-04 Test Time: 11:54:30 Pat Name: KELLI FAGAN Department: Room: Gender: M Prehemmer: [place] : 1950 Requested By: FRANKLIN MARSHALL Order Number: [id number] Reading MD: Measurements Intervals [place] Rate: 66 P: 27 MA: 226 QRS: -28 QRSD: 98 T: 18 QT: 442 QTc: 465 Interpretive Statements SINUS RHYTHM PROLONGED MA INTERVAL LEFTWARD AXIS R-S TRANSITION ZONE IN V LEADS DISPLACED TO THE LEFT ABNORMAL ECG RI6.02 Compared to ECG 05/04/2020 10:18:47 First degree AV block now present Left anterior fascicular block no longer present
[2020-05-04 12:09] VITALS: BP 125/74
--- NOTE | 2020-05-04 16:40 | PDOC4 ---
PROCEDURE Procedure Procedure note. The patient is a 70-year-old male with documented atrial fibrillation. Patient has been placed on rate control medications and confirmed that he has been on anticoagulation for greater than 6 weeks. Morning lab including a potassium and magnesium levels with a were within normal limits. Risks and benefits of ca rdioversion had previously been discussed with the patient in the office. They were again discussed prior to his procedure. Patient gave consent for informed consent to proceed. He was reviewed by the anesthesiology service. The patient then was given sedation as per the anesthesiology service. Once an appropriate level of sedation had been achieved the patient was cardioverted from atrial fibrillation to a normal sinus rhythm with 1 discharge of 200 J on a biphasic device. The patient awoke normally post procedure. He remained in sinus rhythm. He will be continued on present medications including anticoagulation and follow-up in the office in 1 month. Conclusions. Successful cardioversion of atrial fibrillation to normal sinus rhythm. FRANKLIN MARSHALL MD May 04, 2020 16:40
== END 2020-05-04 12:30 | disposition home or self-care (01) ==
LOC: SURG 09:09
PROVIDERS: ATTEND Internal Medicine Cardiovascular Disease
DX: I48.91 Unspecified atrial fibrillation (principal); M16.0 Bilateral primary osteoarthritis of hip; I10 Essential (primary) hypertension; N13.8 Other obstructive and reflux uropathy; E78.5 Hyperlipidemia, unspecified; K21.9 Gastro-esophageal reflux disease without esophagitis; D64.9 Anemia, unspecified; Z83.3 Family history of diabetes mellitus; Z96.653 Presence of artificial knee joint, bilateral; Z79.899 Other long term (current) drug therapy; Z98.890 Other specified postprocedural states; Z72.89 Other problems related to lifestyle; Z82.49 Family history of ischemic heart disease and other diseases of the circulatory system
CPT/HCPCS: 36415; 80048; 83735; 92960; 93005; J2704

== ENCOUNTER → 2021-01-06 | Outpatient (CLI) | payer OTHER ==
[~2021-01-06] MED LIST changes: -IV RINGERS,LACTATED 1000ML 1,000 ML IV SCH
[2021-01-06 11:09] LABS: BASO % 0 % (0-3); EOS # 0.2 x10^3/uL (0.0-0.7); EOS % 2 % (0-3); HEMATOCRIT 37.8 % (39.0-53.0); HEMOGLOBIN 12.7 g/dL (13.0-17.5); LYMPH # 5.5 x10^3/uL (1.0-4.8); LYMPH % 45 % (24-48); MEAN CORPUSCULAR HEMOGLOBIN 31 pg (25-35); MEAN CORPUSCULAR HGB CONC 34 g/dL (31-37); MEAN CORPUSCULAR VOLUME 92 fL (79-100); MONO # 0.6 x10^3/uL (0.0-1.1); MONO % 5 % (0-9); NEUT # 5.9 x10^3/uL (1.8-7.7); NEUT % 48 % (31-73); PLATELET COUNT 227 x10^3/uL (140-400); RED BLOOD COUNT 4.13 x10^6/uL (4.30-5.70); RED CELL DISTRIBUTION WIDTH 13.8 % (11.5-14.5); WHITE BLOOD COUNT 12.3 x10^3/uL (4.0-11.0)
== END ==
LOC: ONCLAB 10:25
PROVIDERS: ATTEND Internal Medicine Hematology & Oncology
DX: C91.10 Chronic lymphocytic leukemia of B-cell type not having achieved remission (principal)
CPT/HCPCS: 36415; 85025; 88184; 88185

== ENCOUNTER → 2021-02-17 | Outpatient (CLI) | payer MEDICARE ==
[~2021-02-17] MED LIST changes: +AMLO-54 PO; -AMLO1CAP53 PO; -AMLO1CAP54 PO; +CYCL10TA19 PO; -CYCL10TA2 PO; +TIZA-75 PO; -TIZA4TAB2 PO; +[UNRECOGNIZED DRUG - CODE] PO
[2021-02-17 09:18] LABS: BASO % 0 % (0-3); EOS # 0.2 x10^3/uL (0.0-0.7); EOS % 2 % (0-3); HEMATOCRIT 37.3 % (39.0-53.0); HEMOGLOBIN 12.6 g/dL (13.0-17.5); LYMPH # 5.2 x10^3/uL (1.0-4.8); LYMPH % 51 % (24-48); MEAN CORPUSCULAR HEMOGLOBIN 31 pg (25-35); MEAN CORPUSCULAR HGB CONC 34 g/dL (31-37); MEAN CORPUSCULAR VOLUME 91 fL (79-100); MONO # 0.6 x10^3/uL (0.0-1.1); MONO % 6 % (0-9); NEUT # 4.2 x10^3/uL (1.8-7.7); NEUT % 41 % (31-73); PLATELET COUNT 226 x10^3/uL (140-400); RED BLOOD COUNT 4.09 x10^6/uL (4.30-5.70); RED CELL DISTRIBUTION WIDTH 13.7 % (11.5-14.5); WHITE BLOOD COUNT 10.3 x10^3/uL (4.0-11.0)
== END ==
LOC: SPEC 08:46
PROVIDERS: ATTEND Internal Medicine Hematology & Oncology
DX: C91.10 Chronic lymphocytic leukemia of B-cell type not having achieved remission (principal)
CPT/HCPCS: 36415; 85025; 88374

== ENCOUNTER → 2021-07-26 | Outpatient (CLI) | payer MEDICARE ==
[2021-07-26 10:00] LABS: BASO % 0 % (0-3); EOS # 0.2 x10^3/uL (0.0-0.7); EOS % 1 % (0-3); HEMATOCRIT 37.8 % (39.0-53.0); HEMOGLOBIN 12.4 g/dL (13.0-17.5); LYMPH # 6.5 x10^3/uL (1.0-4.8); LYMPH % 56 % (24-48); MEAN CORPUSCULAR HEMOGLOBIN 30 pg (25-35); MEAN CORPUSCULAR HGB CONC 33 g/dL (31-37); MEAN CORPUSCULAR VOLUME 91 fL (79-100); MONO # 0.6 x10^3/uL (0.0-1.1); MONO % 5 % (0-9); NEUT # 4.3 x10^3/uL (1.8-7.7); NEUT % 37 % (31-73); PLATELET COUNT 205 x10^3/uL (140-400); RED BLOOD COUNT 4.17 x10^6/uL (4.30-5.70); RED CELL DISTRIBUTION WIDTH 13.9 % (11.5-14.5); WHITE BLOOD COUNT 11.6 x10^3/uL (4.0-11.0)
[2021-07-26 11:40] LABS: % ATYL 6 % (0-0); % BANDS 1 % (0-9); % EOS 3 % (0-5); % LYMPHS 55 % (24-48); % MONOS 4 % (0-10); % SEGS 31 % (35-66); PLT ESTIMATE ADEQUATE (ADEQUATE); SMUDGE CELLS PRESENT
== END ==
LOC: ONCLAB 09:37
PROVIDERS: ATTEND Internal Medicine Hematology & Oncology
DX: C91.10 Chronic lymphocytic leukemia of B-cell type not having achieved remission (principal)
CPT/HCPCS: 36415; 85007; 85025